=== PATIENT | female | born 1965 | race Caucasian/White ===

== ENCOUNTER 2018-01-29 01:06 | Emergency (ER) | END 2018-01-29 03:10 | disposition home or self-care (01) ==

== ENCOUNTER 2018-06-21 19:06 | Inpatient (IN) | payer OTHER ==
[~2018-06-21] VITALS: Ht 160 cm; Wt 75.2 kg
[~2018-06-21 19:06] MED LIST: IBUP-1542 PO; OXYC-279 PO
[2018-06-21] MEDS ORDERED: SOD CHLORIDE 0.9% 1,000 ML IV STA (22:20)
--- NOTE | 2018-06-21 22:55 | ERD ---
ER Documentation Chief Complaint Chief Complaint PT STATES SHE FEELS SOMETHING IN HER THROAT AFTER GLASS BREAKING HPI 52-year-old woman complains of pain in her throat down to the anterior chest after accidentally swallowing a piece of glass Crystal when a glass vase broke in front of her. She felt herself swallowing and then had pain as the piece of glass went down her throat and continues to complain of sharp throat and chest pain. She denies bleeding in the mouth, no blood per rectum or melena, no fevers or chills, no cough. Episode occurred about 5 hours prior to evaluation, she has been n.p.o. since then. ROS All systems reviewed and are negative except as per history of present illness. Medications Home Meds Reported Medications Lisinopril* (Lisinopril*) 5 Mg Tablet, 5 MG PO DAILY, #30 TAB 06/22/18 Omeprazole* (Omeprazole*) 40 Mg Capsule.dr, 40 MG PO DAILY, #30 CAP 06/22/18 Ranitidine Hcl* (Ranitidine Hcl*) 300 Mg Tablet, 300 MG PO HS, #30 TAB 06/22/18 Discontinued Scripts Oxycodone HCl/Acetaminophen (Percocet 5-325 mg Tablet) 1 Each Tablet, 1 EACH PO TID PRN for PAIN, #12 TAB Prov:JOHN CHILDS MD 01/29/18 Ibuprofen* (Motrin*) 600 Mg Tab, 600 MG PO Q8 PRN for PAIN, #30 TAB Prov:JOHN CHILDS MD 01/29/18 Allergies Allergies: Coded Allergies: No Known Allergy (Unverified , 06/22/18) PMhx/Soc Hypertension, diabetes, obesity Medical and Surgical Hx: pt denies Surgical Hx History of Surgery: Yes (Aldo Tubal Ligation) Anesthesia Reaction: No Hx Neurological Disorder: No Hx Respiratory Disorders: No Hx Cardiac Disorders: Yes (HTN) Hx Psychiatric Problems: No Hx Miscellaneous Medical Probl: Yes (Gallstones) Hx Alcohol Use: No Hx Substance Use: No Hx Tobacco Use: No Smoking Status: Never smoker FmHx Family History: diabetes Physical Exam Vitals Vital Signs Date Temp Pulse Resp B/P (MAP) Pulse Ox O2 O2 Flow FiO2 Time Delivery Rate 06/21/18 97.3 79 18 199/119 99 19:29 (145) Physical Exam GENERAL: Well-developed, well-nourished, well-hydrated, in no apparent distress, looks nontoxic in appearance HEENT: Moist mucous membranes, pink conjunctiva, no cervical spine tenderness or step-off deformities, no goiter, no jaundice or icterus, extraocular movements intact without pain. No submandibular induration, and no pharyngeal erythema NEURO: Alert and oriented 3, cranial nerves II through XII intact bilaterally, pupils equal round reactive to light, no focal deficits or facial asymmetry, sensation intact distally Strength 5/5 in upper and lower extremities bilaterally CARDIAC: Regular rate and rhythm, no murmurs rubs or gallops LUNGS: Clear bilaterally no wheezing crackles or stridor ABDOMEN: Soft nontender, no guarding, no rigidity, no rebound, no psoas sign no obturator sign. Normoactive bowel sounds SKIN: Warm and dry to touch, no abrasions, contusions, or hematomas, no lacerations, no ecchymosis, no target lesions, and without ulcers EXTREMITIES: No clubbing cyanosis or edema, calves are bilaterally symmetrical, no Homans sign, no popliteal cord sign. Distal pulses equal and bilateral PSYCH: Normal affect without agitation or irritability Result Diagram: 06/21/18213806/21/182138 Results 24 hrs Laboratory Tests Test 06/21/18 21:30 06/21/18 21:33 06/21/18 21:39 Bedside Urine pH (LAB) 6.0 Bedside Urine Protein (LAB) Negative Bedside Urine Glucose (UA) Negative Bedside Urine Ketones (LAB) Negative Bedside Urine Blood Negative Bedside Urine Nitrite (LAB) Negative Bedside Urine Leukocyte Esterase 1+ (L POC Beta HCG, Qualitative NEGATIVE White Blood Count 5.7 10^3/ul Red Blood Count 4.88 10^6/ul Hemoglobin 13.5 g/dl Hematocrit 40.9 % Mean Corpuscular Volume 83.8 fl Mean Corpuscular Hemoglobin 27.7 pg Mean Corpuscular 33.0 g/dl Hemoglobin Concent Red Cell Distribution Width 12.9 % Platelet Count 243 10^3/UL Mean Platelet Volume 11.1 fl Immature Granulocytes % 0.200 % Neutrophils % 56.9 % Lymphocytes % 36.1 % Monocytes % 6.0 % Eosinophils % 0.4 % Basophils % 0.4 % Nucleated Red Blood Cells % 0.0 /100WBC Immature Granulocytes # 0.010 10^3/ul Neutrophils # 3.2 10^3/ul Lymphocytes # 2.0 10^3/ul Monocytes # 0.3 10^3/ul Eosinophils # 0.0 10^3/ul Basophils # 0.0 10^3/ul Nucleated Red Blood Cells # 0.0 10^3/ul Prothrombin Time 12.1 Sec Prothrombin Time Ratio 0.9 INR International Normalized Ratio 0.89 Activated Partial Thromboplast 28.6 Sec Time Sodium Level 143 mmol/L Potassium Level 3.4 mmol/L Chloride Level 104 mmol/L Carbon Dioxide Level 29 mmol/L Anion Gap 10 Blood Urea Nitrogen 9 mg/dl Creatinine 0.57 mg/dl Est Glomerular Filtrat Rate mL/min > 60 mL/min Glucose Level 104 mg/dl Calcium Level 10.0 mg/dl Total Bilirubin 0.5 mg/dl Direct Bilirubin 0.00 mg/dl Indirect Bilirubin 0.5 mg/dl Aspartate Amino Transf (AST/SGOT) 37 IU/L Alanine 30 IU/L Aminotransferase (ALT/SGPT) Alkaline Phosphatase 131 IU/L Total Protein 8.4 g/dl Albumin 4.7 g/dl Globulin 3.70 g/dl Albumin/Globulin Ratio 1.27 Lipase 58 U/L Current Medications Medications Dose Sig/Shaji Start Time Status Last (Trade) Ordered Route PRN Stop Time Admin Dose Reason Admin Sodium 1,000 ml @ Q1H STAT 06/21/18 DC 06/21/18 Chloride 1,000 mls/hr IV 22:20 22:27 06/21/18 23:19 Procedures/MDM IV line was established patient was placed on inside sales engineer rhythm strip revealed a sinus rhythm at about 80 bpm with upright P and T waves. Patient was afebrile I administered 1 L normal saline IV One AP view of the chest performed, read by me reveals no acute infiltrates, normal mediastinum, sharp costophrenic and cardiac borders, no air under the diaphragm. Otherwise unremarkable chest x-ray. CBC and electrolytes are normal, liver function tests were normal, coagulation profile was normal, urinalysis negative for infection. GI senior sustainability consultant Dr. Pena has been paged Patient will be admitted to [facility] for continued medical management, observation, GI consultation for possible upper endoscopy Departure Diagnosis: Primary Impression: Foreign body ingestion Encounter type: initial encounter Qualified Codes: T18.9XXA - Foreign body of alimentary tract, part unspecified, initial encounter Condition: Fair ZOHRABIAN,JOHN MD Jun 21, 2018 22:55
--- NOTE | 2018-06-21 23:58 | HP ---
Date/Time of Note Date/Time of Note DATE: 06/21/18 TIME: 23:57 Assessment/Plan VTE Prophylaxis SCD applied (from Nsg): Yes Pharmacological prophylaxis: NA/contraindicated Pharm contraindication: low risk/ambulating, other (awaiting possible EGD) Lines/Catheters IV Catheter Type (from Nrsg): Saline Lock Assessment/Plan Assessment/Plan 1. Throat pain after foreign Body Ingestion: -Patient reported accidentally swallowing a piece of glass from a broken glass this -No sign of bleeding -Keep n.p.o. -GI has been contacted by ER -will obtain CT neck 2. Hypertensive urgency: Currently BP better controlled -IV antihypertensives while n.p.o. 3. History of GERD: PPI Result Diagram: 06/21/18213806/21/182138 Results 24hrs Laboratory Tests Test 06/21/18 21:30 06/21/18 21:33 06/21/18 21:39 Bedside Urine pH (LAB) 6.0 Bedside Urine Protein (LAB) Negative Bedside Urine Glucose (UA) Negative Bedside Urine Ketones (LAB) Negative Bedside Urine Blood Negative Bedside Urine Nitrite (LAB) Negative Bedside Urine Leukocyte Esterase (L 1+ H POC Beta HCG, Qualitative NEGATIVE White Blood Count 5.7 Red Blood Count 4.88 Hemoglobin 13.5 Hematocrit 40.9 Mean Corpuscular Volume 83.8 Mean Corpuscular Hemoglobin 27.7 L Mean Corpuscular Hemoglobin Concent 33.0 Red Cell Distribution Width 12.9 Platelet Count 243 # Mean Platelet Volume 11.1 H Immature Granulocytes % 0.200 Neutrophils % 56.9 Lymphocytes % 36.1 Monocytes % 6.0 Eosinophils % 0.4 Basophils % 0.4 Nucleated Red Blood Cells % 0.0 Immature Granulocytes # 0.010 Neutrophils # 3.2 Lymphocytes # 2.0 Monocytes # 0.3 Eosinophils # 0.0 Basophils # 0.0 Nucleated Red Blood Cells # 0.0 Prothrombin Time 12.1 Prothrombin Time Ratio 0.9 INR International Normalized Ratio 0.89 Activated Partial Thromboplast Time 28.6 Sodium Level 143 Potassium Level 3.4 L Chloride Level 104 Carbon Dioxide Level 29 Anion Gap 10 Blood Urea Nitrogen 9 Creatinine 0.57 Est Glomerular Filtrat Rate mL/min > 60 Glucose Level 104 Calcium Level 10.0 Total Bilirubin 0.5 Direct Bilirubin 0.00 Indirect Bilirubin 0.5 Aspartate Amino Transf (AST/SGOT) 37 Alanine Aminotransferase (ALT/SGPT) 30 Alkaline Phosphatase 131 H Total Protein 8.4 H Albumin 4.7 Globulin 3.70 H Albumin/Globulin Ratio 1.27 Lipase 58 HPI/ROS Admit Date/Time Admit Date/Time Hx of Present Illness This is a 52-year-old female with a history of hypertension and GERD who presents the ER complaining of throat pain after accidentally swallowing a piece of glass from a broken glass vase. Patient presents to ER few hours after. Denied hematemesis or BRBPR. No shortness of breath. Stated that it feels like the glass id stuck in the upper part of her neck on the the right side. she looks comfortable When presented to ER, blood pressure 199/119. Lab shows a potassium 3.4 otherwise CBC and CMP WNL PMH/Family/Social Past Medical History Medical History: other Coded Allergies: No Known Allergy (Unverified , 06/22/18) Past Surgical History Past Surgical Hx: other (see hpi) Family History Significant Family History: no pertinent family hx Social History Alcohol Use: none Smoking Status: Never smoker Drug Use: none Exam/Review of Systems Vital Signs Vitals Vital Signs Date Temp Pulse Resp B/P (MAP) Pulse Ox O2 O2 Flow FiO2 Time Delivery Rate 06/21/18 97.3 79 18 199/119 99 19:29 (145) Exam Constitutional: alert, oriented, well developed Head: normocephalic, atraumatic Eyes: EOMI, PERRL Neck: other (no obvious deformity or palpable mass. no tenderness) Respiratory: clear to auscultation, normal air movement Cardiovascular: regular rate and rhythm, nl pulses Gastrointestinal: soft Extremities: normal pulses LEXY ONEILL MD Jun 21, 2018 23:58
[2018-06-22] MEDS ORDERED: ONDANSETRON 4 MG INJ IV PRN
[2018-06-22] MEDS ORDERED: ALBUTEROL/IPRATROPIUM (NEB) 3 ML AMP HHN PRN
[2018-06-22] MEDS ORDERED: morphine 2 MG INJ IV PRN
[2018-06-22] MEDS ORDERED: NACL 0.9% 3 ML SYG IV SCH
[2018-06-22] MEDS ORDERED: LISI-313 PO (00:15)
[2018-06-22] MEDS ORDERED: RANI300T PO (00:15)
[2018-06-22] MEDS ORDERED: OMEP40CA6 PO (00:15)
[2018-06-22 00:30] VITALS: BP 139/93; PULSE 67; RESP 18
[2018-06-22] MEDS: DEXTROSE 5%-0.45% NACL 1,000 ML IV SCH ×3 (01:08→13:32)
[2018-06-22 01:20] VITALS: Ht 160 cm; Wt 75.2 kg
[2018-06-22 03:40] VITALS: BP 152/92; PULSE 63; RESP 16
[2018-06-22] MEDS ORDERED: hydrALAzine 20 MG INJ IV PRN ×2 (04:30)
[2018-06-22 07:35] VITALS: BP 139/92; RESP 18
[2018-06-22] MEDS: FAMOTIDINE 20 MG INJ IV SCH ×2 (08:13→20:49)
--- NOTE | 2018-06-22 13:13 | PN ---
Date/Time of Note Date/Time of Note DATE: 06/22/18 TIME: 13:13 Objective Vitals Vital Signs Date Temp Pulse Resp B/P (MAP) Pulse Ox O2 O2 Flow FiO2 Time Delivery Rate 06/22/18 97.8 18 139/92 99 Room Air 07:35 (108) 06/22/18 63 03:40 Intake and Output 06/21/18 06/21/18 06/22/18 1515:00 23:00 07:00 IntakeIntake Total 1400 ml BalanceBalance 1400 ml Results Result Diagram: 06/22/18 0458 06/22/18 0458 Medications Medications Current Medications Dextrose/Sodium Chloride 1,000 ml @ 100 mls/hr Q10H IV Last administered on 06/22/18at 01:08; Admin Dose 100 MLS/HR; Start 06/21/18 at 23:53 IV Flush (NS 3 ml) 3 ml PER PROTOCOL IV ; Start 06/22/18 at 00:00 Ondansetron HCl (Zofran Inj) 4 mg Q6H PRN IV NAUSEA/VOMITING; Start 06/22/18 at 00:00 Morphine Sulfate (morphine) 2 mg Q4H PRN IV .PAIN 7-10; Start 06/22/18 at 00:00 Famotidine (Pepcid Iv) 20 mg Q12 IV Last administered on 06/22/18at 08:13; Admin Dose 20 MG; Start 06/22/18 at 09:00 Albuterol/ Ipratropium (Duoneb) 3 ml Q2H RESP THERAPY PRN HHN SHORTNESS OF BREATH; Start 06/22/18 at 00:00 Hydralazine HCl (Apresoline) 10 mg Q4H PRN IV SBP > 160; Start 06/22/18 at 00:00 Hydralazine HCl (Apresoline) 10 mg Q6H PRN IV SBP > 160; Start 06/22/18 at 04:30 Ceftriaxone Sodium 50 ml @ 100 mls/hr Q24H IVPB ; Start 06/22/18 at 13:30; Status UNV VTE Prophylaxis Risk score (from Ns)>0 risk: 1 SCD applied (from Ns): Yes Lines/Catheters IV Catheter Type: Travis in Place: No Assessment/Plan Hospital Course Subjective Patient doing okay but still has the discomfort in her right upper throat Objective Physical exam General: Patient is laying in bed and answers questions appropriately Mentation: Patient is alert and oriented 4, Head: Normocephalic atraumatic Eyes: EOMI, pupils reactive to light Neck: Supple, nontender, midline Respiratory: Clear to auscultation bilaterally Cardiovascular: regular rate, no obvious murmurs Gastrointestinal: non-tender to palpation, bowel sounds heard. Neurological: Moves all extremities spontaneously Skin: No new skin lesions Assessment and plan Throat pain after foreign body ingestion -Swallowed a piece of glass from a broken jar -No sign of bleeding -Keep n.p.o. -GI on board, recognitions appreciated -CT neck showing questionable air, cannot rule out perforation, esophagram recommended however barium esophagram may be dangerous in the setting of possible perforation, contacted GI and they will make a decision whether or not they would like barium esophagram versus Gastrografin esophagram versus EGD. -Due to risk of perforation or other abnormal neck pathology, will start ceftriaxone empirically Hypertensive emergency -Treat as needed with IV medications for now as patient is n.p.o., continue home medications when able GERD -PPI Disposition -Awaiting GI recommendations for esophagram versus EGD. JOHN BRITO Jun 22, 2018 13:13
[2018-06-22] MEDS: CEFTRIAXONE 1 GM/50 ML (PMX) 50 ML IVPB SCH (13:32)
[2018-06-22 14:25] VITALS: BP 159/102; PULSE 70; RESP 16
--- NOTE | 2018-06-22 14:54 | CONS ---
Assessment/Plan Assessment/Plan Assessment/Plan (Daily) Assessment: Ingestion of foreign body, glass particles. Neck pain HTN Plan: Will obtain XR esophagram with gastrografin to rule out esophageal perforation. If this comes back negative, she can be advanced to a clear liquid diet. Reassured her that most glass particles will be passed through stool. Patient is clinically stable and low concern for perforation at this time. Patient seen in collaboration with Dr. Heart. CC: [facility] ; Consultation Date/Type/Reason Admit Date/Time Date of Consultation: Jun 22, 2018 Type of Consult gastroenterology Reason for Consultation swallowed glass particles, concern for esophageal perforation. Date/Time of Note DATE: 06/22/18 TIME: 14:42 Hx of Present Illness 52-year-old woman who reports she was cleaning a plant vase which then broke and she felt a piece of glass jump into her mouth which she swallowed. She presented to the ER with complains of pain in her throat. She denies any abdominal pain, rectal bleeding, or bowel dysfunction. She denies any nausea or vomiting. She had a CT of the neck which did not identify and glass though there was a small focus of air for which perforation could not be rules out. A barium esophagram was recommended. She otherwise denies any fevers, chills, weakness, chest pain or palpitations. A 10 point review of systems is otherwise negative except as mentioned in the above HPI. Past Medical History Medical History: other Home Meds Reported Medications Lisinopril* (Lisinopril*) 5 Mg Tablet, 5 MG PO DAILY, #30 TAB 06/22/18 Omeprazole* (Omeprazole*) 40 Mg Capsule., 40 MG PO DAILY, #30 CAP 06/22/18 Ranitidine Hcl* (Ranitidine Hcl*) 300 Mg Tablet, 300 MG PO HS, #30 TAB 06/22/18 Discontinued Scripts Oxycodone HCl/Acetaminophen (Percocet 5-325 mg Tablet) 1 Each Tablet, 1 EACH PO TID PRN for PAIN, #12 TAB Prov:JOHN CHILDS MD 01/29/18 Ibuprofen* (Motrin*) 600 Mg Tab, 600 MG PO Q8 PRN for PAIN, #30 TAB Prov:JOHN CHILDS MD 01/29/18 Medications Current Medications Dextrose/Sodium Chloride 1,000 ml @ 100 mls/hr Q10H IV Last administered on 06/22/18at 13:32; Admin Dose 100 MLS/HR; Start 06/21/18 at 23:53 IV Flush (NS 3 ml) 3 ml PER PROTOCOL IV ; Start 06/22/18 at 00:00 Ondansetron HCl (Zofran Inj) 4 mg Q6H PRN IV NAUSEA/VOMITING; Start 06/22/18 at 00:00 Morphine Sulfate (morphine) 2 mg Q4H PRN IV .PAIN 7-10; Start 06/22/18 at 00:00 Famotidine (Pepcid Iv) 20 mg Q12 IV Last administered on 06/22/18at 08:13; Admin Dose 20 MG; Start 06/22/18 at 09:00 Albuterol/ Ipratropium (Duoneb) 3 ml Q2H RESP THERAPY PRN HHN SHORTNESS OF BREATH; Start 06/22/18 at 00:00 Hydralazine HCl (Apresoline) 10 mg Q4H PRN IV SBP > 160; Start 06/22/18 at 00:00 Hydralazine HCl (Apresoline) 10 mg Q6H PRN IV SBP > 160; Start 06/22/18 at 04:30 Ceftriaxone Sodium 50 ml @ 100 mls/hr Q24H IVPB Last administered on 06/22/18at 13:32; Admin Dose 100 MLS/HR; Start 06/22/18 at 13:30 Allergies: Coded Allergies: No Known Allergy (Unverified , 06/22/18) Past Surgical History Past Surgical Hx: other (see hpi) Social History Alcohol Use: none Smoking Status: Never smoker Drug Use: none Exam/Review of Systems Exam Vitals Vital Signs Date Temp Pulse Resp B/P (MAP) Pulse Ox O2 O2 Flow FiO2 Time Delivery Rate 06/22/18 98.5 70 16 159/102 99 Room Air 14:25 (121) Intake and Output 06/21/18 06/21/18 06/22/18 1515:00 23:00 07:00 IntakeIntake Total 1400 ml BalanceBalance 1400 ml Constitutional: alert, oriented, well developed Psych: no complaints, nl mood/affect Head: normocephalic, atraumatic Eyes: nl conjunctiva, EOMI, nl lids ENMT: nl external ears & nose, nl lips & teeth Neck: supple, non-tender Respiratory: clear to auscultation, normal air movement Cardiovascular: regular rate and rhythm, nl pulses Gastrointestinal: soft, non-tender Musculoskeletal: nl extremities to inspection, nl gait and stance Extremities: normal pulses Results Result Diagram: 06/22/18 0458 06/22/18 0458 Results 24hrs Laboratory Tests Test 06/21/18 21:30 06/21/18 21:33 06/21/18 21:39 06/22/18 04:58 Bedside Urine pH 6.0 (LAB) Bedside Urine Negative Protein (LAB) Bedside Urine Negative Glucose (UA) Bedside Urine Negative Ketones (LAB) Bedside Urine Blood Negative Bedside Urine Negative Nitrite (LAB) Bedside Urine 1+ H Leukocyte Esterase (L POC Beta HCG, NEGATIVE Qualitative White Blood Count 5.7 4.3 #L Red Blood Count 4.88 4.53 Hemoglobin 13.5 12.6 Hematocrit 40.9 38.3 Mean Corpuscular 83.8 84.5 Volume Mean Corpuscular 27.7 L 27.8 L Hemoglobin Mean Corpuscular 33.0 32.9 Hemoglobin Concent Red Cell 12.9 13.1 Distribution Width Platelet Count 243 # 229 Mean Platelet Volume 11.1 H 11.4 H Immature 0.200 0.200 Granulocytes % Neutrophils % 56.9 44.8 Lymphocytes % 36.1 45.9 Monocytes % 6.0 7.7 Eosinophils % 0.4 1.2 Basophils % 0.4 0.2 Nucleated Red Blood 0.0 0.0 Cells % Immature 0.010 0.010 Granulocytes # Neutrophils # 3.2 1.9 Lymphocytes # 2.0 2.0 Monocytes # 0.3 0.3 Eosinophils # 0.0 0.1 Basophils # 0.0 0.0 Nucleated Red Blood 0.0 0.0 Cells # Prothrombin Time 12.1 Prothrombin Time 0.9 Ratio INR International 0.89 Normalized Ratio Activated 28.6 Partial Thromboplast Time Sodium Level 143 143 Potassium Level 3.4 L 3.4 L Chloride Level 104 104 Carbon Dioxide Level 29 27 Anion Gap 10 12 Blood Urea Nitrogen 9 9 Creatinine 0.57 0.51 Est Glomerular > 60 > 60 Filtrat Rate mL/min Glucose Level 104 100 Calcium Level 10.0 9.2 Total Bilirubin 0.5 0.6 Direct Bilirubin 0.00 0.00 Indirect Bilirubin 0.5 0.6 Aspartate Amino 37 26 Transf (AST/SGOT) Alanine 30 26 Aminotransferase (AL T/SGPT) Alkaline Phosphatase 131 H 86 Total Protein 8.4 H 7.0 # Albumin 4.7 4.0 Globulin 3.70 H 3.00 Albumin/Globulin 1.27 1.33 Ratio Lipase 58 Magnesium Level 1.9 Imaging Imaging 06/22/18 CT neck: IMPRESSION: 1. No definite CT evidence for a radiopaque foreign body. 2. Suggestion of a small foci of air in the right paraesophageal region at the level of the cervical esophagus, questionable if this is extraluminal in location. If the suspected air is extraluminal in location, the possibility of a perforation cannot be excluded. Further evaluation with an esophagram is recommended. Medications Medication Current Medications Dextrose/Sodium Chloride 1,000 ml @ 100 mls/hr Q10H IV Last administered on 06/22/18at 13:32; Admin Dose 100 MLS/HR; Start 06/21/18 at 23:53 IV Flush (NS 3 ml) 3 ml PER PROTOCOL IV ; Start 06/22/18 at 00:00 Ondansetron HCl (Zofran Inj) 4 mg Q6H PRN IV NAUSEA/VOMITING; Start 06/22/18 at 00:00 Morphine Sulfate (morphine) 2 mg Q4H PRN IV .PAIN 7-10; Start 06/22/18 at 00:00 Famotidine (Pepcid Iv) 20 mg Q12 IV Last administered on 06/22/18at 08:13; Admin Dose 20 MG; Start 06/22/18 at 09:00 Albuterol/ Ipratropium (Duoneb) 3 ml Q2H RESP THERAPY PRN HHN SHORTNESS OF BREATH; Start 06/22/18 at 00:00 Hydralazine HCl (Apresoline) 10 mg Q4H PRN IV SBP > 160; Start 06/22/18 at 00:00 Hydralazine HCl (Apresoline) 10 mg Q6H PRN IV SBP > 160; Start 06/22/18 at 04:3 0 Ceftriaxone Sodium 50 ml @ 100 mls/hr Q24H IVPB Last administered on 06/22/18at 13:32; Admin Dose 100 MLS/HR; Start 06/22/18 at 13:30 [employer] Jun 22, 2018 14:53
[2018-06-22] MEDS ORDERED: DIATR MEGLU/DIATRIZOATE SODIUM 120 ML BTL ONE (15:42)
[2018-06-22 19:38] VITALS: BP 147/92; PULSE 72; RESP 20
[2018-06-23 02:05] VITALS: BP 120/76; PULSE 71; RESP 20
[2018-06-23] MEDS: DEXTROSE 5%-0.45% NACL 1,000 ML IV SCH ×2 (06:12→16:47)
[2018-06-23 08:48] VITALS: BP 130/82; PULSE 73; RESP 17
[2018-06-23] MEDS: FAMOTIDINE 20 MG INJ IV SCH ×2 (10:05→22:04)
--- NOTE | 2018-06-23 11:36 | PN ---
Date/Time of Note Date/Time of Note DATE: 06/23/18 TIME: 11:34 Objective Vitals Vital Signs Date Temp Pulse Resp B/P (MAP) Pulse Ox O2 O2 Flow FiO2 Time Delivery Rate 06/23/18 98.2 73 17 130/82 97 Room Air 08:48 (98) Intake and Output 06/22/18 06/22/18 06/23/18 1515:00 23:00 07:00 IntakeIntake Total 400 ml 250 ml BalanceBalance 400 ml 250 ml Results Result Diagram: 06/23/18 0451 06/23/18 0451 Medications Medications Current Medications Dextrose/Sodium Chloride 1,000 ml @ 100 mls/hr Q10H IV Last administered on 06/23/18at 06:12; Admin Dose 100 MLS/HR; Start 06/21/18 at 23:53 IV Flush (NS 3 ml) 3 ml PER PROTOCOL IV ; Start 06/22/18 at 00:00 Ondansetron HCl (Zofran Inj) 4 mg Q6H PRN IV NAUSEA/VOMITING; Start 06/22/18 at 00:00 Morphine Sulfate (morphine) 2 mg Q4H PRN IV .PAIN 7-10; Start 06/22/18 at 00:00 Famotidine (Pepcid Iv) 20 mg Q12 IV Last administered on 06/23/18at 10:05; Admin Dose 20 MG; Start 06/22/18 at 09:00 Albuterol/ Ipratropium (Duoneb) 3 ml Q2H RESP THERAPY PRN HHN SHORTNESS OF BREATH; Start 06/22/18 at 00:00 Hydralazine HCl (Apresoline) 10 mg Q4H PRN IV SBP > 160; Start 06/22/18 at 00:00 Hydralazine HCl (Apresoline) 10 mg Q6H PRN IV SBP > 160; Start 06/22/18 at 04:3 0 Ceftriaxone Sodium 50 ml @ 100 mls/hr Q24H IVPB Last administered on 06/22/18at 13:32; Admin Dose 100 MLS/HR; Start 06/22/18 at 13:30 VTE Prophylaxis Risk score (from Ns)>0 risk: 1 SCD applied (from Ns): Yes Lines/Catheters IV Catheter Type: Travis in Place: No Assessment/Plan Hospital Course Subjective Patient states right throat discomfort has moderately improved. Objective Physical exam General: Patient is laying in bed and answers questions appropriately Mentation: Patient is alert and oriented 4, Head: Normocephalic atraumatic Eyes: EOMI, pupils reactive to light Neck: Supple, nontender, midline Respiratory: Clear to auscultation bilaterally Cardiovascular: regular rate, no obvious murmurs Gastrointestinal: non-tender to palpation, bowel sounds heard. Neurological: Moves all extremities spontaneously Skin: No new skin lesions Assessment and plan Throat pain after foreign body ingestion -Swallowed a piece of glass from a broken jar -No sign of bleeding -Keep n.p.o. until okay with GI -GI on board, recognitions appreciated -CT neck noted, barium swallow negative for perforation UTI -Dirty catch however patient was symptomatic yesterday -Due to dirty catch however with symptoms, continue ceftriaxone, will receive third dose tomorrow, will unlikely need any other treatment other than that but will see tomorrow Hypertensive emergency -Treat as needed with IV medications for now as patient is n.p.o., continue home medications when able GERD -PPI Disposition -GI to still see patient today, okay to start diet if okay by GI, patient tolera ting oral intake will DC tomorrow. JOHN BRITO Jun 23, 2018 11:36
[2018-06-23 14:00] VITALS: BP 160/93; RESP 17
[2018-06-23] MEDS: CEFTRIAXONE 1 GM/50 ML (PMX) 50 ML IVPB SCH (14:51)
--- NOTE | 2018-06-23 16:13 | PN ---
Date/Time of Note Date/Time of Note DATE: 06/23/18 TIME: 16:02 Assessment/Plan VTE Prophylaxis Risk score (from Nsg)>0 risk: 1 SCD applied (from Nsg): Yes Pharmacological prophylaxis: heparin Lines/Catheters IV Catheter Type (from Nrsg): Peripheral IV Urinary Cath still in place: No Assessment/Plan Assessment/Plan Assessment: Ingestion of foreign body, glass particles. -Esophagram negative for any perforation Neck pain -CT neck negative for any foreign body HTN Plan: Advance diet as tolerated. Trial of lidocaine swish and swallow. If tolerates diet, can be discharged from GI standpoint. Continue current regimen. Patient seen in collaboration with Dr. Heart. Subjective: Patient reports mild throat pain when talking though overall improved. Discussed with her that all imaging was negative and we can advance her diet. Otherwise denies fevers, abdominal pain, nausea or vomiting. Physical exam: Constitutional: alert, oriented, well developed Psych: no complaints, nl mood/affect Head: normocephalic, atraumatic Eyes: nl conjunctiva, EOMI, nl lids ENMT: nl external ears & nose, nl lips & teeth Neck: supple, non-tender Respiratory: clear to auscultation, normal air movement Cardiovascular: regular rate and rhythm, nl pulses Gastrointestinal: soft, non-tender Musculoskeletal: nl extremities to inspection, nl gait and stance Extremities: normal pulses Result Diagram: 06/23/181 06/23/18 0451 Results 24hrs Laboratory Tests Test 06/23/18 04:51 White Blood Count 6.7 # Red Blood Count 4.70 Hemoglobin 13.1 Hematocrit 39.2 Mean Corpuscular Volume 83.4 Mean Corpuscular Hemoglobin 27.9 L Mean Corpuscular Hemoglobin Concent 33.4 Red Cell Distribution Width 13.2 Platelet Count 233 Mean Platelet Volume 11.1 H Immature Granulocytes % 0.100 Neutrophils % 72.6 Lymphocytes % 21.4 Monocytes % 5.2 Eosinophils % 0.6 Basophils % 0.1 Nucleated Red Blood Cells % 0.0 Immature Granulocytes # 0.010 Neutrophils # 4.9 Lymphocytes # 1.4 Monocytes # 0.4 Eosinophils # 0.0 Basophils # 0.0 Nucleated Red Blood Cells # 0.0 Sodium Level 142 Potassium Level 3.5 Chloride Level 105 Carbon Dioxide Level 28 Anion Gap 9 Blood Urea Nitrogen 11 Creatinine 0.57 Est Glomerular Filtrat Rate mL/min > 60 Glucose Level 114 Calcium Level 9.5 Phosphorus Level 3.7 Magnesium Level 2.0 CC: [facility] ; Exam/Review of Systems Exam Vitals Vital Signs Date Temp Pulse Resp B/P (MAP) Pulse Ox O2 O2 Flow FiO2 Time Delivery Rate 06/23/18 98.2 73 17 130/82 97 Room Air 08:48 (98) Intake and Output 06/22/18 06/22/18 06/23/18 1515:00 23:00 07:00 IntakeIntake Total 400 ml 250 ml BalanceBalance 400 ml 250 ml Results Results 24hrs Laboratory Tests Test 06/23/18 04:51 White Blood Count 6.7 # Red Blood Count 4.70 Hemoglobin 13.1 Hematocrit 39.2 Mean Corpuscular Volume 83.4 Mean Corpuscular Hemoglobin 27.9 L Mean Corpuscular Hemoglobin Concent 33.4 Red Cell Distribution Width 13.2 Platelet Count 233 Mean Platelet Volume 11.1 H Immature Granulocytes % 0.100 Neutrophils % 72.6 Lymphocytes % 21.4 Monocytes % 5.2 Eosinophils % 0.6 Basophils % 0.1 Nucleated Red Blood Cells % 0.0 Immature Granulocytes # 0.010 Neutrophils # 4.9 Lymphocytes # 1.4 Monocytes # 0.4 Eosinophils # 0.0 Basophils # 0.0 Nucleated Red Blood Cells # 0.0 Sodium Level 142 Potassium Level 3.5 Chloride Level 105 Carbon Dioxide Level 28 Anion Gap 9 Blood Urea Nitrogen 11 Creatinine 0.57 Est Glomerular Filtrat Rate mL/min > 60 Glucose Level 114 Calcium Level 9.5 Phosphorus Level 3.7 Magnesium Level 2.0 Imaging Imaging Esophagram 06/22/18: IMPRESSION: No evidence of contrast leak or mucosal abnormality to suggest a perforation. No radiopaque foreign body is identified Medications Medication Current Medications Dextrose/Sodium Chloride 1,000 ml @ 100 mls/hr Q10H IV Last administered on 06/23/18at 06:12; Admin Dose 100 MLS/HR; Start 06/21/18 at 23:53 IV Flush (NS 3 ml) 3 ml PER PROTOCOL IV ; Start 06/22/18 at 00:00 Ondansetron HCl (Zofran Inj) 4 mg Q6H PRN IV NAUSEA/VOMITING; Start 06/22/18 at 00:00 Morphine Sulfate (morphine) 2 mg Q4H PRN IV .PAIN 7-10; Start 06/22/18 at 00:00 Famotidine (Pepcid Iv) 20 mg Q12 IV Last administered on 06/23/18at 10:05; Admin Dose 20 MG; Start 06/22/18 at 09:00 Albuterol/ Ipratropium (Duoneb) 3 ml Q2H RESP THERAPY PRN HHN SHORTNESS OF BREATH; Start 06/22/18 at 00:00 Hydralazine HCl (Apresoline) 10 mg Q4H PRN IV SBP > 160; Start 06/22/18 at 00:00 Hydralazine HCl (Apresoline) 10 mg Q6H PRN IV SBP > 160; Start 06/22/18 at 04:30 Ceftriaxone Sodium 50 ml @ 100 mls/hr Q24H IVPB Last administered on 06/23/18at 14:51; Admin Dose 100 MLS/HR; Start 06/22/18 at 13:30 RUFUS TRIMBLE NP Jun 23, 2018 16:12
[2018-06-23] MEDS ORDERED: LIDOCAINE 2% VISC 15 ML CUP PO SCH (16:30)
[2018-06-23 19:48] VITALS: BP 139/88; PULSE 88; RESP 20
[2018-06-24 02:03] VITALS: BP 136/84; PULSE 77; RESP 18
[2018-06-24] MEDS: DEXTROSE 5%-0.45% NACL 1,000 ML IV SCH (02:06)
[2018-06-24 08:35] VITALS: BP 141/86; PULSE 81; RESP 18
[2018-06-24] MEDS: FAMOTIDINE 20 MG INJ IV SCH (08:40)
[2018-06-24] MEDS ORDERED: LACT1CAP57 PO (09:43)
[2018-06-24] MEDS ORDERED: CIPR500T4 PO (09:43)
[2018-06-24] MEDS ORDERED: LISI-471 PO (09:43)
--- NOTE | 2018-06-24 09:58 | DS ---
DATE OF ADMISSION: 06/21/2018 DATE OF DISCHARGE: 06/24/2018 FINAL DIAGNOSES: 1. Ingestion of foreign body/glass vesicles esophagogram negative for perforation. CT of the neck negative for foreign body. 2. Hypertension, improved, stable control. 3. Urinary tract infection with cultures growing Escherichia coli and gram- negative rods sensitive to Cipro. CONSULTS ON THE CASE: BIMAL Adame with nurse practitioner. INTERVENTIONS: The patient underwent soft tissue of the neck CT that showed no evidence of radiopaque foreign body, concern for possible small foci of air in the right paraesophageal region and they recommended an esophagram. The patient underwent a barium swallow that showed no evidence of contrast leak or mucosal abnormalities to suggest perforation and no radiopaque foreign body. After above interventions, the patient was started on a diet, which she has been tolerating and at this time is actually requesting to be discharged. HOSPITAL COURSE: Full details are available in chart for review. In summary, this is a 52-year-old female who had presented to the emergency room complaining of throat pain after accidentally swallowing a piece of glass from a broken glass vase without hematemesis or bright red blood per rectum. She gets feeling as if something was stuck in her throat. She was worked up as above. No perforation or injury was found or even foreign body. The patient was started on a diet which she has tolerated well. At this time, she is requesting to be discharged because she has a citizenship interview today and she seems to be overall in stable condition and will be discharged home to follow up as needed with her primary care doctor. If symptoms recur or she starts to notice any bleeding, she is advised to follow up with her PCP or return to the ER. She has verbalized understanding. DISPOSITION: To home. Activities as tolerated. HOME MEDICATIONS, DISCHARGE MEDICATIONS: 1. Cipro 500 p.o. b.i.d. 2. Lactobacillus acidophilus 1 capsule b.i.d. 3. Lisinopril 20 daily. 4. Omeprazole 40 daily. 5. Ranitidine 300 at bedtime. DISCHARGE CONDITION: Stable. Time spent on discharge planning 40 minutes. Dictated By: BRENT GALIDNO MD, BA/ALCIRA Conf#: [id number] DID#: [id number] CC: LEXY ONEILL MD;*EndCC* MTDD
== END 2018-06-24 10:52 | disposition home or self-care (01) | DRG 394 ==
LOC: E/R 19:06 → PP2 23:39
PROVIDERS: ADMIT Internal Medicine; ATTEND Family Medicine
DX: T18.198A Other foreign object in esophagus causing other injury, initial encounter (principal); N39.0 Urinary tract infection, site not specified; I16.0 Hypertensive urgency; B96.20 Unspecified Escherichia coli [E. coli] as the cause of diseases classified elsewhere; I10 Essential (primary) hypertension; E11.9 Type 2 diabetes mellitus without complications; K21.9 Gastro-esophageal reflux disease without esophagitis; X58.XXXA Exposure to other specified factors, initial encounter
CPT/HCPCS: 36415; 70490; 71045; 74230; 80048; 80053; 81001; 81003; 81025; 83690; 83735; 84100; 85025; 85610; 85730; 87086; 96360; J0696; J7030; J7042